=== PATIENT | male | born 1950 | race Two or more races ===

== ENCOUNTER 2025-02-14 06:10 | Inpatient (IN) | payer MEDICARE ==
[2025-02-11 14:22] LABS: Hematocrit 43.2 % (41.0-53.0); Hemoglobin 14.6 g/dL (13.5-17.5); Mean Corpuscular Hemoglobin 28.9 pg (28.0-32.0); Mean Corpuscular Volume 85.2 fL (80.0-100.0); Nucleated Red Blood Cells % 0.0 %
[2025-02-11 14:38] LABS: INR 0.97 (0.9-1.15); Partial Thromboplastin Time 25.9 SEC (24.5-34.5); Prothrombin Time 10.3 sec (9.3-11.8)
[2025-02-11 14:53] LABS: Urine Protein, UAD Negative (Negative)
[2025-02-11 16:21] LABS: Alanine Aminotransferase 28 U/L (7-40); Albumin 4.4 g/dL (3.2-4.8); Alkaline Phosphatase 69 U/L (46-116); Anion Gap 10 (5-15); BUN/Creatinine Ratio 9.1 (10.0-20.0); Calcium 9.4 mg/dL (8.7-10.4); Carbon Dioxide 26 mmol/L (20-31); Chloride 103 mmol/L (98-107); Glucose 105 mg/dL (74-106); Potassium 4.3 mmol/L (3.5-5.1); Sodium 139 mmol/L (136-145); Total Protein 7.4 g/dL (5.7-8.2)
[2025-02-11 16:22] LABS: Bilirubin, Total 0.5 mg/dL (0.2-1.0)
[2025-02-11 16:26] LABS: Blood Urea Nitrogen 9 mg/dL (9-23)
[2025-02-14] VITALS (7 sets, daily range): BP systolic 133–146; BP diastolic 81–93; PULSE 73–102; RESP 12–18; TEMP 97.2–97.7; O2SAT 96–98
[~2025-02-14] VITALS: Ht 162.6 cm; Wt 86.6 kg
[~2025-02-14 06:10] MED LIST: ASPI81CH59 PO; ATOR10TA PO; CALC1TAB92 PO; CLOP75TA28 PO; GLIM2TAB33 PO; LISI20TA56 PO; METO25TA93 PO; PANT40TA2 PO; SITA50TA28 PO
[2025-02-14] MEDS ORDERED: fentaNYL CITRATE 5 ML ONE (07:16)
[2025-02-14] MEDS ORDERED: fentaNYL CITRATE 100 MCG/2 ML VL ONE ×2 (07:16→10:00)
[2025-02-14] MEDS ORDERED: GLYCOPYRROLATE 0.2 MG/ML 1ML VIAL ONE (07:17)
[2025-02-14] MEDS ORDERED: PHENYLEPHRINE HCL 10 MG/ML VL ONE (07:17)
[2025-02-14] MEDS ORDERED: ETOMIDATE (2MG/ML) 20ML VIAL IV ONE (07:17)
[2025-02-14] MEDS ORDERED: ROCURONIUM 10MG/ML 10ML VIAL IV ONE (07:17)
[2025-02-14] MEDS ORDERED: MIDAZOLAM HCL 2MG/2ML 2ml VIAL (1mg/ml) ONE (07:17)
[2025-02-14] MEDS ORDERED: PROPOFOL 10 MG/ML 20 ML IV ONE ×2 (07:17→10:10)
[2025-02-14] MEDS ORDERED: ONDANSETRON HCL 4 MG/2 ML VIAL ONE (07:17)
[2025-02-14] MEDS ORDERED: HYDROmorphone HCL 2 MG/ML VL/or syr ONE (07:24)
--- NOTE | 2025-02-14 07:41 | DVHHP2 ---
History Allergies: Coded Allergies: NO KNOWN ALLERGIES (Unverified , 02/11/25) Chief Complaint: Right shoulder pain. Cervical stenosis Present Illness(Onset/Duration Patient has been having right shoulder pain and weakness to his right arm for the past 6-7 months physical therapy did help a little bit but as soon as he stops it comes right back with pain and weakness. Noncontributory Past Surgical History: Other (Stent placement x1) Exam Exam General Appearance: No Apparent Distress, Normal, Obese HEENT: Normal ENT Inspection Neck: Normal, Other (Normal range of motion however complaining of right shoulder pain and weakness of the right arm however hand tack puller machine are equal) Respiratory: No Accessory Muscle Use, None, No Respiratory Distress Cardiovascular: None, Other (No complaints of chest pain skin is pink warm and dry) Gastrointestinal: Other (No complaints) Extremities: Normal capillary refill, Other (Weakness to the right arm however equal strong hand tack puller machine) Neurologic: Alert, No Motor Deficits, Normal Affect, Normal Mood Cerebellar Function: Normal, Other (No complaints of balance issues) Skin: Normal Color, Warm Plan Additional comments: Patient is arrived for elective spine surgery with Dr Francis Jacinto C4-7 anterior cervical diskectomy and fusion. Patient is currently complaining of right shoulder pain and right arm weakness has been going on for about 6-7 months he has had physical therapy in the past which did help however when physical therapy ends the pain and discomfort and weakness returns. Patient understands that the goals to discharge are that the patient is eating eating without nausea. drinking fluids without coughing or choking, voiding clear yellow urine, passing gas or having a bowel movement, ambulating safely with or without assistive devices, and patient is able to control pain with oral analgesia only. The risks/benefits/alternatives of surgery were explained to the patient in detail including but not limited to , stroke, paralysis, myocardial infarction, bleeding, infection, complications of anesthesia (dry mouth, sore throat, dental damage, respiratory depression, blindness), postoperative infection, incomplete relief of symptoms, recurrence of symptoms, damage to blood vessels, nerves and tendons, pulmonary embolism and possible need for repeat surgery in the future. Pain, damage to surrounding soft tissue structures, need for reoperation or future surgery, persistent pain/disability/deformity, bone graft collapse or extrusion of interbody device, instrumentation failure, need for instrumentation removal, dural tear, temporary or permanent nerve root damage, deep vein thrombosis, pulmonary embolism, were described to the patient in detail and the patient wishes to proceed. No guarantee of surgical outcome/improvement was implied. All of the questions were answered thoroughly and consents were obtained. Call with questions Rafael Garcia [facility] Orthopaedic Spine Surgery nurse practitioner For Dr Nehemias Jacinto Patient was examined, chart reviewed, labs evaluated, and diagnostic studies and findings analyzed. Case was discussed with Dr. Francis Jacinto who formulated the plan of care. This medical document was created using an electronic medical record system with [employer] dictation system. Although this document has been carefully reviewed, there might still be some phonetic and typographical errors. These areas are purely typographical due to imperfections of the software programs, and do not reflect any compromise in the patient's medical care. KAYCEE GARCIA NP Feb 14, 2025 07:41
--- NOTE | 2025-02-14 07:43 | POSTOP ---
Post-Operative Note Post-Operative Note Preop Diagnosis Cervical Degenerative Disk Disease and Severe Spinal Stenosis at C3/4 , C4/5 and C5/6 Causing incapacitating neck pain, radiculopathy and progressive neurologic deficit Postop Diagnosis: Cervical Degenerative Disk Disease and Severe Spinal Stenosis at C3/4 , C4/5 and C5/6 Causing incapacitating neck pain, radiculopathy and progressive neurologic deficit Procedure: Cervical 3 to 4 anterior cervical discectomy with Cervical 3-4 foraminotomies and facetectomies to decompression the spinal canal and Cervical 4 nerve roots Cervical 4 to 5 anterior cervical discectomy with Cervical 4-5 foraminotomies and facetectomies to decompression the spinal canal and Cervical 5 nerve roots Cervical 5 to 6 anterior cervical discectomy with Cervical 5-6 foraminotomies and facetectomies to decompression the spinal canal and Cervical 6 nerve roots Cervical 3-6 anterior cervical Fusion Cervical 3-6 anterior cervical instrumentation with Xtant Irix-C Standalone Interbody Fusion Devices Cervical 3-4 placement of allograft prosthetic device Cervical 4-5 placement of allograft prosthetic device Cervical 5-6 placement of allograft prosthetic device Operation performed C4-7 anterior cervical diskectomy and fusion Specimen None Anesthesia: General Anesthesiologist: Dr Malone Blood Loss(fluid mgmt) See anesthesia record Tourniquet Time None Surgeon Dr Francis Jacnito Passenger Locomotive Engineer Dana Maradiaga, [employer] Implant 7mm spacer x 3 3.5 x 14 screw x 6 Complications & Mgmt None Additional Remarks Initial complaintsPatient is currently complaining of right shoulder pain and right arm weakness has been going on for about 6-7 months he has had physical therapy in the past which did help however when physical therapy ends the pain and discomfort and weakness returns. Disposition: -Pending -Discharge RX: Pending -Follow up appointment: with Dr Jacinto on scheduled date and time of your appointment, [id number] [facility] [address] [place] [address] [place] [id number] -Pain: - IV pain meds post op day 1, with PO supplementation, goal is to progress weaning off IV medications and control pain with PO only. morphine 1mg q 4 hours (PAIN 7-10) - P.O. analgesics:Tylenol 650MG (PAIN 1-3) [place] 10/325 mg (PAIN 4-6) - Muscle relaxers scheduled administration. This is a beneficial medications for the incisional pain as it is mostly related to muscle spasms. Flexeril 10 mg TID - Cepacol throat lozenges as needed for sore throat -Antibiotics Operative recommendations: -Postoperative dose:-Post operative antibiotics cefazolin 1 g IV piggyback every 8 hours x 48 hours total of 6 doses -DVT PPX: -Hold all chemical DVT/ blood thinners for 14 days postoperatively -use mechanical DVT PPX such as SCD's, ambulation -Activity: -PT evaluation and patients progression -Sit at side of bed for meals -Goal: Ambulate independently and safely (may use assistive devices if needed) -Medical Therapy goals: -Afebrile- Patient may develop a expected post operative fever by day 2-3, this may not be accompanied with a elevation in WBC. if fever develops: Acetaminophen for fever. Albuterol nebulizer Tx every 12 hours for 24 hours to facilitate adequate lung expansion and prevent development of atelectasis. -Euglycemic: bloods sugars under 130mmol/L for optimal healing -Normotensive: Avoid events of hypertension. This helps to keep post operative healing intact and avoids destabilization of beneficial hemostatic coagulation. Drains -Bulb drains: record output and characteristics of the drainage EVERY 6 HOURS- if there is no output indicate this by documenting 0ml output in note.. These will be to thumbprint compression unless otherwise ordered. Record output as well as amount in a note at least every 6 houtrs- more if indicated. Wound drainage is described by type, color, amount, and odor. Drainage can be 1 serous: Clear and thin, may be present in healing healthy wound. 2 serosanguineous containing blood may also be present and healthy healing wound 3. Sanguinous primarily blood 4. Purulent this is thick, white, and pus like. It may be indicated to give of a infection and should constitute a call to the provider immediately with the plan that the sample should be cultured. -Dressings -Anterior cervical patients: Initial surgical dressing may be reinforced if needed. If there is excessive bleeding, leaking, drainage in the bulb drain notify provider -Bowel management: -Colace 100mg bid -Diet: -Clear liquid diet and advance as patient tolerates within dietary limitations ( example: diabetic, Cardiac) -Incentive Spirometer: -10 x hour while awake, RN please educate and observe repeat demonstration, have IS at bedside POD #1 -X-rays: - none indicated at this time -Consults: -Physical Therapy evaluation, treatment recommendations, and discharge recommendations Call with questions Rafael Maradiaga [facility] Orthopaedic Spine Surgery nurse practitioner For Dr Nehemias Jacinto Patient was examined, chart reviewed, labs evaluated, and diagnostic studies and findings analyzed. Case was discussed with Dr. Francis Jacinto who formulated the plan of care. This medical document was created using an electronic medical record system with [employer] dictation system. Although this document has been carefully reviewed, there might still be some phonetic and typographical errors. These areas are purely typographical due to imperfections of the software programs, and do not reflect any compromise in the patient's medical care. Date 02/14/25 Time 07:41 DANA MARADIAGA NP Feb 14, 2025 07:43
[2025-02-14] MEDS ORDERED: MORPHINE SULFATE INJ 2 MG/ml SYRG IV PRN ×2 (09:15)
[2025-02-14] MEDS ORDERED: HYDROcodone-ACET 10/325MG TAB PO PRN (09:15)
[2025-02-14] MEDS ORDERED: ACETAMINOPHEN 325 MG TAB PO PRN (09:15)
[2025-02-14] MEDS ORDERED: ONDANSETRON HCL 4 MG/2 ML VIAL IV PRN ×2 (09:15→12:00)
[2025-02-14] MEDS ORDERED: NITROGLYCERIN 0.4 MG SL TAB SL PRN (09:15)
[2025-02-14] MEDS ORDERED: MEPERIDINE HCL (25 MG/ML) 1ML VIAL ONE (10:00)
[2025-02-14] MEDS ORDERED: SUGAMMADEX 200mg/2ml Vial (100MG/ML) IV ONE (11:19)
--- NOTE | 2025-02-14 11:47 | DVHOP2 ---
Operative Report - 2 Report Details Date: 02/14/25 Preop Diagnosis: 1. cervical spinal stenosis at C3/4 and 4/5 and 5/6 with severe neck pain , radiculopathy and myelopathy causing progressive neurologic deficit Postop Diagnosis: same as pre op Surgeon: Francis Jacinto MD Straw Hat Brim Cutter Operator: Dana Garcia NP Anesthesiologist: Dr. Malone Anesthesia: General Consent: The patient was informed of the risks and benefits of the procedure. These include but are not limited to complications of anesthesia, postoperative infection, incomplete relief of symptoms, recurrence of symptoms, damage to blood vessels, nerves and tendons, deep venous thrombosis, pulmonary embolism and possible need for repeat surgery in the future. Name of Procedure Performed see detailed note Procedure Details Procedure Details: Pre Op Diagnosis: 1. Cervical Degenerative Disk Disease and Severe Spinal Stenosis at C3/4 , C4/5 and C5/6 Causing incapacitating neck pain, radiculopathy and progressive neurologic deficit Post Op Diagnosis: 1. Same Procedure: Cervical 3 to 4 anterior cervical discectomy with Cervical 3-4 foraminotomies and facetectomies to decompression the spinal canal and Cervical 4 nerve roots Cervical 4 to 5 anterior cervical discectomy with Cervical 4-5 foraminotomies and facetectomies to decompression the spinal canal and Cervical 5 nerve roots Cervical 5 to 6 anterior cervical discectomy with Cervical 5-6 foraminotomies and facetectomies to decompression the spinal canal and Cervical 6 nerve roots Cervical 3-6 anterior cervical Fusion Cervical 3-6 anterior cervical instrumentation with Xtant Irix-C Standalone Interbody Fusion Devices Cervical 3-4 placement of allograft prosthetic device Cervical 4-5 placement of allograft prosthetic device Cervical 5-6 placement of allograft prosthetic device Surgeon: Francis Jacinto MD Anesthesia: General Assist: Dana Garcia NP Fluids and EBL: see anesthesia note Procedure Note: The patient was seen in the Pre-anesthesia Care Unit and the site of the incision was initialed by me with a felt tipped marker. All questions by the patient were answered to the satisfaction of the patient and the chart was reviewed. The patient was taken to the operating room and placed supine on the [facility] top table. General anesthesia was induced. Neuromonitoring leads were placed. A rolled towel was placed between the shoulder blades to hyperextend out the chest which will allow better exposure of the cervical spine. Halter traction to 10 pounds was placed. The arms were padded and adducted to the patients side making sure all pulses in the hands were present. Tape traction was undertaken on the shoulders to give us better radiographic exposure of the distal cervical spine. A gel-pad was placed under the occiput and 5 degrees of extension was placed on the neck without adverse effects to the patient. The anterior neck was prepped and draped. Pre-operative antibiotics were given 30 minutes prior to the start of the procedure. A c-arm fluoroscope was used to arturo out the incision site. A longitudinal incision from the cricoid process cranially to the hyoid bone along the anterior border of the sternocleidomastoid was made. At this time, a time out was taken per usual protocol. Next an incision was made through the skin with a 15 blade scalpel through the subcutaneous tissue down to the platysma. Self-retainers were placed. The platysma was incised along the longitudinal border with a Metzenbaum scissors. Blunt dissection was made through the deep cervical and pre-tracheal fascia taking care to protect the carotid sheath laterally and the trachea and esophagus medially. The dissection was carried down to the pre-vertebral fascia. Any crossing vessels were ligated using a vascular clip or coagulated with a bovie. An esophageal retractor was next used to retract the trachea/esophagus and a bent [address] through the anterior annulus of the cervical disk and a lateral C-arm fluoroscopic image was taken to confirm that we were at the correct level. Next, bovie electrocautery was used to expose the bones of cervical 3,4,5,6 and bipolar electrocautery was used to lift up the Longus colli and capitus muscles. Black-Belt Self Retainers were used to retract the longus colli and capitus muscles bilaterally as well as the trachea/esophagus to the right and the carotid sheath to the left. Self retaining retractors were placed proximally and distally and a needle was placed again in the anterior annulus of the disk and an image taken to confirm the correct level. At this point, the microscope was wheeled in and an 11 blade scalpel incised the anterior annulus of the cervical 3/4 and 4/5 and 5/6 disks. Next, straight and curved curettes removed the remainder of the disks all the way down to the posterior longitudinal ligament. Carefully, a Kerison number one rongeur incised the posterior longitudinal ligament at the lateral end of the above disks and using a micro, blunt tip nerve hook to separate the posterior longitudinal ligament from the dura, alternating 1 mm and 2 mm Kerison rongeurs removed the posterior longitudinal ligament. Next, Kerison 1mm and 2 mm rongeurs were alternated to get under the uncinate processes and undercut them to perform foraminotomies and facetectomies at the cervical 3/4 and 4/5 and 5/6 levels to decompress the central canal and cervical 4,5 and 6 nerve roots. Next the c-arm fluoroscope was wheeled into the field and a lateral image was obtained. Increasing size graft trials were used start ing at a 5 mm thick size until the proper tension in the disk space and height bahai obtained. We then placed final free standing cages at C3/4 and 4/5 and 5/6. The size of the implants was: Satisfactory placement was confirmed in the AP and lateral views using a C-arm fluoroscope. Copious irrigation of the wound with sterile saline and all bleeding was controlled before closure initiated. At this point, a [address] [place] [address] Drain was place deep to the Platysma muscle and the Platysma was a pproximated with one interrupted 0-Vicryl suture. The subcutaneous tissue was closed with interrupted 2-0 vicryl sutures and the skin was closed with heather. Sterile dressings were placed and a cervical collar placed, the patient extubated, transferred to the stretcher and taken to the Recovery Room in unremarkable condition. Condition Stable Disposition Still a Patient FRANCIS JACINTO MD Feb 14, 2025 11:47
[2025-02-14] MEDS ORDERED: HYDROmorphone HCL 2 MG/ML VL/or syr IV PRN (12:00)
[2025-02-14] MEDS: ceFAZolin 1GM/50ML 50 ML IV SCH (13:31)
[2025-02-14] MEDS: CYCLOBENZAPRINE HCL 10 MG TAB PO SCH (13:33)
[2025-02-14] MEDS: D5W/SOD CHLO 0.9% 1,000 ML IV SCH (13:35)
[2025-02-14] MEDS: TRANEXAMIC ACID 20 ML ONE (13:42)
[2025-02-14] MEDS: ceFAZolin 2 GM/D5W50ml 50 ML IV ONE (13:42)
[2025-02-14] MEDS: DOCUSATE SOD 100 MG CAP PO SCH (13:43)
[2025-02-14] MEDS ORDERED: DEXTROSE (50%) 50ML SYRG IV PRN (14:15)
[2025-02-14] MEDS: InsuLIN REG 1unit/0.01ml Soln (100units/ml) SC SCH (14:32)
[2025-02-14] MEDS: ACETAMINOPHEN IV 1000 MG/100ML (10MG/ML) IV ONE (15:12)
--- NOTE | 2025-02-14 15:22 | DVHINCON2 ---
Date Seen: Feb 14, [address] REA Allergies: Coded Allergies: NO KNOWN ALLERGIES (Unverified , 02/11/25) Home Meds Reported Medications Calcium Carbonate (Calcium) 600 Mg Tab, 600 MG PO DAILY, TAB 02/11/25 Aspirin (Aspirin Low Dose) 81 Mg Chw, 81 MG PO DAILY, TAB.CHEW 02/11/25 Sitagliptin-Metformin Hcl (JANUMET XR) 1 Tab Tab, 1 TAB PO DAILY, TAB 02/11/25 Clopidogrel Bisulfate (Plavix) 75 Mg Tab, 75 MG PO DAILY, TAB 02/11/25 Lisinopril (Lisinopril) 20 Mg Tab, 10 MG PO DAILY, TAB 02/11/25 Metoprolol Succinate (Metoprolol Succinate Er) 25 Mg Tab, 25 MG PO DAILY, TAB 02/11/25 Atorvastatin Calcium (Lipitor) 10 Mg Tab, 10 MG PO DAILY, TAB 02/11/25 Pantoprazole Sodium Sesquihydr (Protonix) 40 Mg Tab, 40 MG PO DAILY, #30 TAB 02/11/25 Glimepiride (Glimepiride) 2 Mg Tab, 3 MG PO DAILY, TAB 02/11/25 Current Medications Current Medications Medications (Trade) Dose Ordered Sig/Janice Route PRN Reason Start Time Stop Time Status Last Admin Dextrose/Sodium Chloride 1,000 ml @ 100 mls/hr Q10H IV 02/14/25 09:15 02/14/25 14:15 DC 02/14/25 13:35 Ondansetron HCl (Zofran) 4 mg Q4HP PRN IV NAUSEA / VOMITING 02/14/25 09:15 Acetaminophen (Tylenol Tablet) 650 mg Q6HP PRN PO MILD PAIN (1-3 PAIN SCALE) 02/14/25 09:15 Acetaminophen/ Hydrocodone Bitart ([place] 10/325MG Tab) 1 tab Q6HP PRN PO MODERATE PAIN (4-6 PAIN SCALE) 02/14/25 09:15 Morphine Sulfate 1 mg Q4HP PRN IV SEVERE PAIN (7-10 PAIN SCALE) 02/14/25 09:15 Cyclobenzaprine HCl (Flexeril Tablet) 10 mg TID PO 02/14/25 14:00 02/14/25 13:33 Docusate Sodium (Colace Capsule) 100 mg BID PO 02/14/25 10:00 Cefazolin Sodium 50 ml @ 100 mls/hr Q8HR IV 02/14/25 14:00 02/16/25 06:29 02/14/25 13:31 Nitroglycerin (Ntrostat Sublingual) 0.4 mg Q5MINP PRN SL FOR CHEST PAIN 02/14/25 09:15 Morphine Sulfate 2 mg Q30M PRN IV FOR CHEST PAIN 02/14/25 09:15 Ondansetron HCl (Zofran) 4 mg ONCE PRN IV NAUSEA / VOMITING 02/14/25 12:00 02/14/25 13:06 DC Hydromorphone HCl (Dilaudid Injection) 0.5 mg Q10M PRN IV SEVERE PAIN (7-10 PAIN SCALE) 02/14/25 12:00 02/14/25 13:06 DC Diagnostic Test (Pha) (Accu-Chek Comfort Curve T) 1 strip ACHS 02/14/25 17:00 Insulin Human Regular (InsuLIN R) ACHS SC 02/14/25 14:15 02/14/25 14:32 Dextrose 50 ml UD PRN IV Blood Sugar LESS THAN 60 02/14/25 14:15 Vital Signs Vital Signs Date Time Temp Pulse Resp B/P (MAP) Pulse Ox O2 Delivery O2 Flow Rate FiO2 02/14/25 14:32 97 18 138/82 (100) 96 02/14/25 12:14 Nasal Cannula 2.0 96 02/14/25 06:24 97.3 97.3 Labs/Diagnostic Data Labs Test 02/14/25 14:02 02/11/25 13:54 Range/Units POC Glucose 303 H 70-106 mg/dl White Blood Count 9.1 4.4-10.8 10^3/uL Red Blood Count 5.07 4.5-5.90 10^6/uL Hemoglobin 14.6 13.5-17.5 g/dL Hematocrit 43.2 41.0-53.0 % Mean Corpuscular Volume 85.2 80.0-100.0 fL Mean Corpuscular Hemoglobin 28.9 28.0-32.0 pg Mean Corpuscular Hemoglobin Concent 33.9 32.0-36.0 g/dL Red Cell Distribution Width 13.8 11.8-14.3 % Platelet Count 192 140-450 10^3/uL Mean Platelet Volume 10.1 6.9-10.8 fL Neutrophils (%) (Auto) 55.7 37.0-80.0 % Lymphocytes (%) (Auto) 29.9 10.0-50.0 % Monocytes (%) (Auto) 8.8 0.0-12.0 % Eosinophils (%) (Auto) 4.7 0.0-7.0 % Basophils (%) (Auto) 0.9 0.0-2.0 % Neutrophils # (Auto) 5.0 1.6-8.6 10 ^3/uL Lymphocytes # (Auto) 2.7 0.4-5.4 10 ^3/uL Monocytes # (Auto) 0.8 0-1.3 10 ^3/uL Eosinophils # (Auto) 0.4 0-0.8 10 ^3/uL Basophils # (Auto) 0.1 0-0.2 10 ^3/uL Nucleated Red Blood Cells 0.0 % Prothrombin Time 10.3 9.3-11.8 sec Prothrombin Time INR 0.97 0.9-1.15 Activated Partial Thromboplast Time 25.9 24.5-34.5 SEC Urine Color Colorless Yellow Urine Clarity Clear Clear Urine pH 6.5 5.0-9.0 Urine Specific [place] 1.005 1.001-1.035 Urine Protein Negative Negative Urine Ketones Negative Negative Urine Blood Negative Negative /uL Urine Nitrite Negative Negative Urine Bilirubin Negative Negative Urine Urobilinogen Normal Negative mg/dL Urine Leukocyte Esterase Negative Negative /uL Urine RBC <1 0 - 3 /hpf Urine Microscopic WBC 0-3 /HPF Urine Squamous Epithelial Cells None seen <5 /hpf Urine Bacteria None seen None Seen /hpf Urine Glucose Normal Normal mg/dL Sodium Level 139 136-145 mmol/L Potassium Level 4.3 3.5-5.1 mmol/L Chloride Level 103 98-107 mmol/L Carbon Dioxide Level 26 20-31 mmol/L Anion Gap 10 5-15 Blood Urea Nitrogen 9 9-23 mg/dL Creatinine 0.99 0.700-1.30 mg/dL Glomerular Filtration Rate Calc 80 >90 mL/min BUN/Creatinine Ratio 9.1 L 10.0-20.0 Serum Glucose 105 74-106 mg/dL Calcium Level 9.4 8.7-10.4 mg/dL Total Bilirubin 0.5 0.2-1.0 mg/dL Aspartate Amino Transferase (AST) 18 13-40 U/L Alanine Aminotransferase (ALT) 28 7-40 U/L Alkaline Phosphatase 69 46-116 U/L Total Protein 7.4 5.7-8.2 g/dL Albumin 4.4 3.2-4.8 g/dL Assessment SEE DICTATED NOTE Plan discussed with: Patient Date of Service: Feb 14, 2025 Billing Provider: MARKO WRIGHT MD Common Visit Codes: 74036-WPMSDXU INP/OBS CARE (HIGH) Secondary Visit Codes: 47406-[id number] CARE PLAN 30 MINUTES MARKO WRIGHT MD Feb 14, 2025 15:22
--- NOTE | 2025-02-14 16:39 | DVH ---
C-ARM FLUOROSCOPY: PROCEDURE: C4 through C7 discectomy with fusion FLUOROSCOPY TIME: 44.7 seconds Air Kerma: Not given FINDINGS: Spot intraoperative C arm radiographs demonstrating cervical discectomy and fusion. IMPRESSION: 1. Please refer to surgical report for detailed findings.
--- NOTE | 2025-02-14 16:41 | DVH ---
CLINICAL INDICATION: C4-C7 DISCECTOMY AND FUSION TECHNIQUE: 5 radiographic views of the C4 through C7 discectomy and fusion were obtained. Comparison: None FINDINGS/IMPRESSION: 5 images of discectomy cervical fusion C4 through C7. Total fluoro time 44.7 seconds Cumulative dose: 5.25 mGy
[2025-02-14] MEDS: ACCU-CHEK COMFORT CURVE STRIP VI SCH (17:00)
--- NOTE | 2025-02-14 19:00 | DVHINCON2 ---
DATE OF CONSULTATION: 02/14/2025 INTERNAL MEDICINE CONSULT HISTORY OF PRESENT ILLNESS: The patient is a 74-year-old gentleman who was admitted after he underwent surgery on the cervical spine for cervical stenosis. The patient at this time denies any significant pain. No chest pain, no shortness of breath, no dizziness, no focal deficits. REVIEW OF SYSTEMS: Review of rest of systems are currently negative. PAST MEDICAL HISTORY: Significant for diabetes, hypertension, hyperlipidemia and questionable coronary artery disease. MEDICATIONS: Include aspirin, Plavix, Lipitor, glimepiride, metoprolol, Protonix, and lisinopril. ALLERGIES: No known drug allergies. SOCIAL HISTORY: No smoking. Lives at home with family. FAMILY HISTORY: Family history is negative. PHYSICAL EXAMINATION: GENERAL: The patient is awake, alert. VITAL SIGNS: Temperature of 97.3, pulse 97 per minute, blood pressure 138/82. SHEENT: Unremarkable except for dressing on the left side of the neck with a drain in place. LUNGS: Equal bilaterally. No added sounds. CARDIOVASCULAR: S1 and S2 is regular. No murmurs. ABDOMEN: Soft. There is no organomegaly. NEUROLOGIC: Nonfocal. MUSCULOSKELETAL: Normal except for dressing to the left neck. ASSESSMENT AND PLAN: * Hypertension, for which the patient will be placed on as-needed hydralazine. * Diabetes mellitus. The patient will be placed on sliding scale insulin. * Hyperlipidemia. * Obesity. * Coronary artery disease. * Status post cervical spine surgery for cervical stenosis, for which he will be placed on pain medications and received physical therapy. * Advanced care planning: The patient is a full code-Time spent was 17 minutes. MD SANCHO Blue/YUDI TID: [id number] RECEIPT: [id number] [facility]
[2025-02-15] VITALS (8 sets, daily range): BP systolic 143–151; BP diastolic 78–89; PULSE 69–102; RESP 16–18; TEMP 97.5–98.9; O2SAT 94–99
[2025-02-15] MEDS: hydrALAZINE HCL 20 MG/ML VL IV PRN (05:01)
[2025-02-15 05:57] LABS: Hematocrit 38.8 % (41.0-53.0); Hemoglobin 13.2 g/dL (13.5-17.5); Mean Corpuscular Hemoglobin 29.2 pg (28.0-32.0); Mean Corpuscular Volume 85.9 fL (80.0-100.0); Nucleated Red Blood Cells % 0.1 %
[2025-02-15 06:14] LABS: Alanine Aminotransferase 24 U/L (7-40); Alkaline Phosphatase 58 U/L (46-116); Anion Gap 9 (5-15); BUN/Creatinine Ratio 12.1 (10.0-20.0); Blood Urea Nitrogen 11 mg/dL (9-23); Calcium 9.0 mg/dL (8.7-10.4); Carbon Dioxide 24 mmol/L (20-31); Potassium 4.3 mmol/L (3.5-5.1); Sodium 142 mmol/L (136-145); Total Protein 6.5 g/dL (5.7-8.2)
[2025-02-15 06:15] LABS: Albumin 3.9 g/dL (3.2-4.8)
[2025-02-15 06:16] LABS: Bilirubin, Total 0.5 mg/dL (0.2-1.0)
[2025-02-15 06:27] LABS: Chloride 109 mmol/L (98-107); Glucose 228 mg/dL (74-106)
--- NOTE | 2025-02-15 10:50 | DVHPN2 ---
Progress Note - Surgical Date Seen: Feb 15, 2025 Post op day Post op day: 1 Subjective Patient reports: No new complaints (Pt feeling good, up and walking) Review of Systems: NEURO:Abnormal (Initial complaints Patient preop complaints of right shoulder pain and right arm weakness has been going on for about 6-7 months he has had physical therapy in the past which did help however when physical therapy ends the pain and discomfort and weakness returns.) Objective Vital signs Vital Sign Date Time Temp Pulse Resp B/P (MAP) Pulse Ox O2 Delivery O2 Flow Rate FiO2 02/15/25 09:00 97.9 77 16 148/78 (101) 99 97.9 02/14/25 20:00 Nasal Cannula* 2 28 Total Intake and Output 02/14/25 02/14/25 02/15/25 15:00 23:00 07:00 Intake Total 850 ml 760 ml Output Total 25 ml 20 ml 2750 ml Balance -25 ml 830 ml -1990 ml Medications Current Medications Medications Dose Ordered Sig/Janice Route Start Time Stop Time Status Last Admin Dose Admin Ondansetron HCl 4 mg Q4HP PRN IV 02/14/25 09:15 Acetaminophen 650 mg Q6HP PRN PO 02/14/25 09:15 Acetaminophen/ Hydrocodone Bitart 1 tab Q6HP PRN PO 02/14/25 09:15 Morphine Sulfate 1 mg Q4HP PRN IV 02/14/25 09:15 Cyclobenzaprine HCl 10 mg TID PO 02/14/25 14:00 02/15/25 05:01 10 MG Docusate Sodium 100 mg BID PO 02/14/25 10:00 02/15/25 10:02 100 MG Cefazolin Sodium 50 ml @ 100 mls/hr Q8HR IV 02/14/25 14:00 02/16/25 06:29 02/15/25 05:01 100 MLS/HR Nitroglycerin 0.4 mg Q5MINP PRN SL 02/14/25 09:15 Morphine Sulfate 2 mg Q30M PRN IV 02/14/25 09:15 Diagnostic Test (Pha) 1 strip ACHS 02/14/25 17:00 02/15/25 10:02 1 STRIP Insulin Human Regular ACHS SC 02/14/25 14:15 02/15/25 06:07 4 UNITS Dextrose 50 ml UD PRN IV 02/14/25 14:15 Hydralazine HCl 10 mg Q6HP PRN IV 02/14/25 15:30 02/15/25 05:01 10 MG Laboratory Laboratory Tests 02/15/25 05:32 Test 02/15/25 05:32 Range/Units Serum Glucose 228 #H 74-106 mg/dL Examination: GENERAL:Normal, HEENT:Normal, NECK:Normal (bulb drain intact with over 50 mlin drainage, will keep drain and reassess tuesday02/16/25), LUNGS:Normal, CVS:Normal, ABDOMEN:Normal, MSK:Normal (patiennt ambulating), SKIN:Normal (well approximated with heather), NEURO:Normal (preop symptoms resolved), :Abnormal (salinas remains) Problem List/Assessment/Plan Problems: (1) Acute post-operative pain (2) Muscle spasms of neck Assessment and Plan Initial complaints Patient preop complaints of right shoulder pain and right arm weakness has been going on for about 6-7 months he has had physical therapy in the past which did help however when physical therapy ends the pain and discomfort and weakness returns. patient doing well, ambulating,preop symptoms resolving nicely will reassess drain tomorrow patient is progressing to DC. Disposition: -Pending -Discharge RX: Pending -Follow up appointment: with Dr Jacinto on scheduled date and time of your appointment, [id number] [facility] [address] [place] [id number] -Pain: - IV pain meds post op day 1, with PO supplementation, goal is to progress weaning off IV medications and control pain with PO only. morphine 1mg q 4 hours (PAIN 7-10) - P.O. analgesics:Tylenol 650MG (PAIN 1-3) Arco 10/325 mg (PAIN 4-6) - Muscle relaxers scheduled administration. This is a beneficial medications for the incisional pain as it is mostly related to muscle spasms. Flexeril 10 mg TID - Cepacol throat lozenges as needed for sore throat -Antibiotics Operative recommendations: -Postoperative dose:-Post operative antibiotics cefazolin 1 g IV piggyback every 8 hours x 48 hours total of 6 doses -DVT PPX: -Hold all chemical DVT/ blood thinners for 14 days postoperatively -use mechanical DVT PPX such as SCD's, ambulation -Activity: -PT evaluation and patients progression -Sit at side of bed for meals -Goal: Ambulate independently and safely (may use assistive devices if needed) -Medical Therapy goals: -Afebrile- Patient may develop a expected post operative fever by day 2-3, this may not be accompanied with a elevation in WBC. if fever develops: Acetaminophen for fever. Albuterol nebulizer Tx every 12 hours for 24 hours to facilitate adequate lung expansion and prevent development of atelectasis. -Euglycemic: bloods sugars under 130mmol/L for optimal healing -Normotensive: Avoid events of hypertension. This helps to keep post operative healing intact and avoids destabilization of beneficial hemostatic coagulation. Drains -Bulb drains: record output and characteristics of the drainage EVERY 6 HOURS- if there is no output indicate this by documenting 0ml output in note.. These will be to thumbprint compression unless otherwise ordered. Record output as well as amount in a note at least every 6 houtrs- more if indicated. Wound drainage is described by type, color, amount, and odor. Drainage can be 1 serous: Clear and thin, may be present in healing healthy wound. 2 serosanguineous containing blood may also be present and healthy healing wound 3. Sanguinous primarily blood 4. Purulent this is thick, white, and pus like. It may be indicated to give of a infection and should constitute a call to the provider immediately with the plan that the sample should be cultured. -[place]: -DC in OR -Dressings -Anterior cervical patients: Initial surgical dressing may be reinforced if needed. If there is excessive bleeding, leaking, drainage in the bulb drain notify provider -Bowel management: -Colace 100mg bid -Diet: -Clear liquid diet and advance as patient tolerates within dietary limitations ( example: diabetic, Cardiac) -Incentive Spirometer: -10 x hour while awake, RN please educate and observe repeat demonstration, have IS at bedside POD #1 -X-rays: - none indicated at this time -Consults: -Physical Therapy evaluation, treatment recommendations, and discharge recommendations Call with questions Rafael Maradiaga ACNP- Orthopaedic Spine Surgery nurse practitioner For Dr Nehemias Jacinto Patient was examined, chart reviewed, labs evaluated, and diagnostic studies and findings analyzed. Case was discussed with Dr. Francis Jacinto who formulated the plan of care. This medical document was created using an electronic medical record system with [employer] dictation system. Although this document has been carefully reviewed, there might still be some phonetic and typographical errors. These areas are purely typographical due to imperfections of the software programs, and do not reflect any compromise in the patient's medical care. My Orders My Orders Orders - KAYCEE MARADIAGA NP Procedure Category Date Status Time * Urology Consult CONS 02/14/25 Transmitted 12:02 Communication Order ORDERS 02/14/25 Transmitted 12:02 Is At Bedside. JOHN 02/14/25 In Process 12:02 Kike Drain To Closed JOHN 02/14/25 In Process Suction 12:02 Communication Order ORDERS 02/14/25 Transmitted 18:00 Communication Order ORDERS 02/15/25 Transmitted 00:00 Communication Order ORDERS 02/15/25 Transmitted 06:00 Communication Order ORDERS 02/15/25 Transmitted 12:00 Communication Order ORDERS 02/15/25 Transmitted 18:00 Consistent DIET 02/14/25 Transmitted Carb(Ccho)Diabetes Dinner * Hospitalist Consult CONS 02/14/25 Transmitted Plan discussed with Plan discussed with: Patient, Other Visit Coding Surgery Date of Service if different f: Feb 15, 2025 Billing Provider: KAYCEE MARADIAGA NP Surgery Visit Codes: NOT BILLABLE KAYCEE MARADIAGA NP Feb 15, 2025 10:50
--- NOTE | 2025-02-15 13:33 | DVHPN2 ---
Reviewed: Care Plan, H&P, Labs, Medications, Previous Orders, Radiology Changes from previous H/P or p: No Changes Objective Vitals Vital Signs Date Time Temp Pulse Resp B/P (MAP) Pulse Ox O2 Delivery O2 Flow Rate FiO2 02/15/25 09:00 97.9 77 16 148/78 (101) 99 97.9 02/14/25 20:00 Nasal Cannula* 2 28 Intake/Output Intake and Output 02/15/25 07:00 Intake Total 1610 ml Output Total 2795 ml Balance -1185 ml Intake Oral 1160 ml Other 450 ml Output Urine Total 2750 ml Drainage Total 45 ml Medications Current Medications Medications Dose Ordered Sig/Janice Route Start Time Stop Time Status Last Admin Dose Admin Ondansetron HCl 4 mg Q4HP PRN IV 02/14/25 09:15 Acetaminophen 650 mg Q6HP PRN PO 02/14/25 09:15 Acetaminophen/ Hydrocodone Bitart 1 tab Q6HP PRN PO 02/14/25 09:15 Morphine Sulfate 1 mg Q4HP PRN IV 02/14/25 09:15 Cyclobenzaprine HCl 10 mg TID PO 02/14/25 14:00 02/15/25 05:01 10 MG Docusate Sodium 100 mg BID PO 02/14/25 10:00 02/15/25 10:02 100 MG Cefazolin Sodium 50 ml @ 100 mls/hr Q8HR IV 02/14/25 14:00 02/16/25 06:29 02/15/25 05:01 100 MLS/HR Nitroglycerin 0.4 mg Q5MINP PRN SL 02/14/25 09:15 Morphine Sulfate 2 mg Q30M PRN IV 02/14/25 09:15 Diagnostic Test (Pha) 1 strip ACHS 02/14/25 17:00 02/15/25 10:02 1 STRIP Insulin Human Regular ACHS SC 02/14/25 14:15 02/15/25 11:39 4 UNITS Dextrose 50 ml UD PRN IV 02/14/25 14:15 Hydralazine HCl 10 mg Q6HP PRN IV 02/14/25 15:30 02/15/25 05:01 10 MG Laboratory Results Laboratory Tests 02/15/25 05:32 Chemistry Test 02/15/25 05:32 Albumin 3.9 g/dL (3.2-4.8) Calcium Level 9.0 mg/dL (8.7-10.4) Total Protein 6.5 g/dL (5.7-8.2) LFT Test 02/15/25 05:32 Alanine Aminotransferase (ALT) 24 U/L (7-40) Alkaline Phosphatase 58 U/L (46-116) Aspartate Amino Transferase (AST) 17 U/L (13-40) Total Bilirubin 0.5 mg/dL (0.2-1.0) HgA1c, TSH Test 02/15/25 05:32 Hemoglobin A1c 8.7 % A1C (<5.7) H Urinalysis Test 02/11/25 13:54 Urine Color Colorless (Yellow) Urine Clarity Clear (Clear) Urine pH 6.5 (5.0-9.0) Urine Specific [place] 1.005 (1.001-1.035) Urine Protein Negative (Negative) Urine Ketones Negative (Negative) Urine Blood Negative /uL (Negative) Urine Nitrite Negative (Negative) Urine Bilirubin Negative (Negative) Urine Urobilinogen Normal mg/dL (Negative) Urine Leukocyte Esterase Negative /uL (Negative) Urine RBC <1 /hpf (0 - 3) Urine Microscopic WBC /HPF (0-3) Urine Squamous Epithelial Cells None seen /hpf (<5) Urine Bacteria None seen /hpf (None Seen) Urine Glucose Normal mg/dL (Normal) Labs and/or images reviewed: Labs reviewed by me, Image(s) reviewed by me Assessment/Plan Assessment/Plan * covering for Dr. Rascon Hypertension, for which the patient will be placed on as-needed hydralazine. * Diabetes mellitus. The patient will be placed on sliding scale insulin. * Hyperlipidemia. * Obesity. * Coronary artery disease. * Status post cervical spine surgery for cervical stenosis, for which he will be placed on pain medications and received physical therapy. * Advanced care planning: The patient is a full code. Time spent 70 minutes Advanced care planning time 20 minutes Patient is full code Plan discussed with: Patient Date of Service: Feb 15, 2025 Billing Provider: NIRAV GREEN MD Common Visit Codes: [id number] CARE 30-74 MIN NIRAV GREEN MD Feb 15, 2025 13:33
--- NOTE | 2025-02-15 18:36 | DVHINCON2 ---
Date of service: Feb 14, [address] Segundo Jacinto Past Medical History Past Medical History Past medical records: reviewed Cardiovascular history: Long history of hypertension complicated by hypertensive CAD The patient had suffered acute inferolateral wall ND in May 2008 He received then PTCA followed by stent placement to proximal RCA(100% occluded ) 70% occlusion of proximal L circumflex artery-medically treated Received stress EKG test on 12/28/2024- unremarkable for reversible ischemia Endocrine history: Uncontrolled diabetestype 2 -hemoglobin A1c 8.5 to 10% % on hypoglycemic Hypercholesterolemia-the patient has been on Lipitor r and Ecotrin Exogenous obesity: BMI 30 kg/m-the patient overweighs 30 pounds Genitourinary history: 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 Asymptomatic now Musculoskeletal: Major Georgiou helicotrema mellitus, with elevated blood Coded Allergies: No Known Allergies (Verified , 06/06/17) Current medications Reported Medications Atorvastatin Calcium (ATORVASTATIN CALCIUM) 30 Mg Tablet, 40 MG PO QHS for SEE LABEL COMMENT., #30 TAB 06/06/17 Lisinopril (LISINOPRIL) 20 Mg Tablet, 20 MG PO DAILY for SEE LABEL COMMENT., #30 TAB 06/06/17 Metoprolol Succinate (METOPROLOL SUCCINATE) 25 Mg Tab.er.24h, 25 MG PO DAILY for SEE LABEL COMMENT., #30 TAB 06/06/17 PAST SURGICAL HISTORY Unremarkable Family History Not contributory Social History Patient currently lives by himself, 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 Constitutional: Denies easy tiredness, fever chills weight loss 2. Head & Face: Denies headache, nasal congestion 3: Eyes: Denies conjunctiva pains, blurred vision 4. ENT: nasal congestion, hearing deficit 5. Respiratory: cough, chest congestion, SOB. 6. Cardiovascular: angina, palpitation, SOB, edema 7. GI: Reports abdominal pain, rectal bleeding, tenderness. 8. : Denies dysuria, frequency. 9. Musculoskeletal: Denies generalized aches,back pains 10. Extremities: Denies edema, rash, open wounds 11. Neurological: Denies AMS, focal weakness or seizures 12. Skin: Denies rashes or open ulcerated wound 13. Endocrine: : Denies diabetes, hypothyroidism 14. Hem/Lymph: Denies anemia, leukemia, multiple myeloma 15. Allergy/Immunology: Denies allergic reactions 16. Psychiatry: Denies anxiety or depression disorder 17. Otherwise the Review of Systems is Negative as per History & Physical Interview: Yes Objective: Vitals Current Average/Min/Max Temp: 36.4 C (97.5 F) Temp Min: 36.4 C (97.5 F) Max: 37 C (98.6 F) BP: 146/74 BP Min: 134/80 Max: 146/74 HR: 54 Pulse Av.5 Min: 54 Max: 65 RR: 17 Resp Av.5 Min: 17 Max: 18 SpO2: 97 % on L/min room air SpO2 Min: 97 % Max: 97 % Weight: 79.8 kg (176 lb) Admit: 79.8 kg (176 lb) Physical exam Family History: Diabetes mellitus G8 MOTHER G8 FATHER Allergies: Coded Allergies: NO KNOWN ALLERGIES (Unverified , 02/11/25) Home Meds Reported Medications Calcium Carbonate (Calcium) 600 Mg Tab, 600 MG PO DAILY, TAB 02/11/25 Aspirin (Aspirin Low Dose) 81 Mg Chw, 81 MG PO DAILY, TAB.CHEW 02/11/25 Sitagliptin-Metformin Hcl (JANUMET XR) 1 Tab Tab, 1 TAB PO DAILY, TAB 02/11/25 Clopidogrel Bisulfate (Plavix) 75 Mg Tab, 75 MG PO DAILY, TAB 02/11/25 Lisinopril (Lisinopril) 20 Mg Tab, 10 MG PO DAILY, TAB 02/11/25 Metoprolol Succinate (Metoprolol Succinate Er) 25 Mg Tab, 25 MG PO DAILY, TAB 02/11/25 Atorvastatin Calcium (Lipitor) 10 Mg Tab, 10 MG PO DAILY, TAB 02/11/25 Pantoprazole Sodium Sesquihydr (Protonix) 40 Mg Tab, 40 MG PO DAILY, #30 TAB 02/11/25 Glimepiride (Glimepiride) 2 Mg Tab, 3 MG PO DAILY, TAB 02/11/25 Vital Signs Vital Signs Date Time Temp Pulse Resp B/P (MAP) Pulse Ox O2 Delivery O2 Flow Rate FiO2 02/14/25 17:47 97.2 86 17 133/81 (98) 98% 02/14/25 14:32 97 18 138/82 (100) 96% Nasal Cannula* 02/14/25 12:32 99 12 141/73 (95) 95 % Nasal cannula 2 28 02/14/25 11:47 102 12 159/84 (109 ) 96% Mask 5 50 Physical Exam General appearance: Well-developed, well-nourished late middle-aged white male Drowsy but awakenable to verbal commands Reports post surgical pains, in no respiratory distress Head: Normocephalic nontraumatic Eyes: EOMI, ANGIE, sclera nonicteric, conjunctive- pale ENT: No congestion, NSL bilateral symmetrical, oral mucosa dry Neck: Supple, carotid upstroke +2, trachea midline, surgical wound clean JVD-3 cm, No thyroid or lymph node , no use of sternomastoid muscle Chest: Bilateral symmetrical expansions, No costochondral tenderness Lungs: clear breath sounds all over except reduced at bases CVS: PMI-1 cm lateral to L MCL in fifth ICS , S1- S2 NSR no S3 GI: Abdomen soft, obese, bowel sounds normoactive, no mass/hernia No focal tenderness, No hepato splenomegaly, : No CVA tenderness, no bladder mass palpable, genitalia-NE SKIN: Turgor normal, color pink, no rash, no icterus, No varicosity, no ulcers or wounds EXTs: No edema, color pink, no rash, no ecchymosis, No open wounds distal pulses +2 capillary refill <2 seconds, JOINTS: full range of motion BACK: No apparent lumbosacral spinal muscle tenderness, LYMPH NODES: No cervical, axillary or inguinal lymph nodes Neuro: Drowsy but awakenable, oriented 4, coherent, all cognitives- intact No pronator drift, no focal motor deficit, Changes of DPN, DTR +2, gait NE PSYCH: Affect mildly depressed-denies suicidal ideation Labs/Diagnostic Data Labs Test 02/15/25 17:19 02/15/25 05:32 02/11/25 13:54 Range/Units POC Glucose 255 H 70-106 mg/dl White Blood Count 13.2 #H 4.4-10.8 10^3/uL Red Blood Count 4.52 4.5-5.90 10^6/uL Hemoglobin 13.2 L 13.5-17.5 g/dL Hematocrit 38.8 #L 41.0-53.0 % Mean Corpuscular Volume 85.9 80.0-100.0 fL Mean Corpuscular Hemoglobin 29.2 28.0-32.0 pg Mean Corpuscular Hemoglobin Concent 34.0 32.0-36.0 g/dL Red Cell Distribution Width 14.1 11.8-14.3 % Platelet Count 171 140-450 10^3/uL Mean Platelet Volume 10.2 6.9-10.8 fL Neutrophils (%) (Auto) 80.2 H 37.0-80.0 % Lymphocytes (%) (Auto) 11.5 10.0-50.0 % Monocytes (%) (Auto) 8.1 0.0-12.0 % Eosinophils (%) (Auto) 0.0 0.0-7.0 % Basophils (%) (Auto) 0.2 0.0-2.0 % Neutrophils # (Auto) 10.6 H 1.6-8.6 10 ^3/uL Lymphocytes # (Auto) 1.5 0.4-5.4 10 ^3/uL Monocytes # (Auto) 1.1 0-1.3 10 ^3/uL Eosinophils # (Auto) 0 0-0.8 10 ^3/uL Basophils # (Auto) 0 0-0.2 10 ^3/uL Nucleated Red Blood Cells 0.1 % Sodium Level 142 136-145 mmol/L Potassium Level 4.3 3.5-5.1 mmol/L Chloride Level 109 H 98-107 mmol/L Carbon Dioxide Level 24 20-31 mmol/L Anion Gap 9 5-15 Blood Urea Nitrogen 11 9-23 mg/dL Creatinine 0.91 0.700-1.30 mg/dL Glomerular Filtration Rate Calc 89 >90 mL/min BUN/Creatinine Ratio 12.1 10.0-20.0 Serum Glucose 228 #H 74-106 mg/dL Hemoglobin A1c 8.7 H <5.7 % A1C Calcium Level 9.0 8.7-10.4 mg/dL Total Bilirubin 0.5 0.2-1.0 mg/dL Aspartate Amino Transferase (AST) 17 13-40 U/L Alanine Aminotransferase (ALT) 24 7-40 U/L Alkaline Phosphatase 58 46-116 U/L Total Protein 6.5 5.7-8.2 g/dL Albumin 3.9 3.2-4.8 g/dL Prothrombin Time 10.3 9.3-11.8 sec Prothrombin Time INR 0.97 0.9-1.15 Activated Partial Thromboplast Time 25.9 24.5-34.5 SEC Urine Color Colorless Yellow Urine Clarity Clear Clear Urine pH 6.5 5.0-9.0 Urine Specific [place] 1.005 1.001-1.035 Urine Protein Negative Negative Urine Ketones Negative Negative Urine Blood Negative Negative /uL Urine Nitrite Negative Negative Urine Bilirubin Negative Negative Urine Urobilinogen Normal Negative mg/dL Urine Leukocyte Esterase Negative Negative /uL Urine RBC <1 0 - 3 /hpf Urine Microscopic WBC 0-3 /HPF Urine Squamous Epithelial Cells None seen <5 /hpf Urine Bacteria None seen None Seen /hpf Urine Glucose Normal Normal mg/dL CARINE MORALES MD Feb 15, 2025 18:36
--- NOTE | 2025-02-15 18:42 | DVHPN2 ---
Progress Note - Dictate Date Seen: Feb 15, 2025 vital signs Vital Sign Date Time Temp Pulse Resp B/P (MAP) Pulse Ox O2 Delivery O2 Flow Rate FiO2 02/15/25 17:41 150/81 02/15/25 16:58 98.9 90 18 96 98.9 02/15/25 07:30 Nasal Cannula* 2 28 Total Intake and Output 02/14/25 02/14/25 02/15/25 15:00 23:00 07:00 Intake Total 850 ml 760 ml Output Total 25 ml 20 ml 2750 ml Balance -25 ml 830 ml -1990 ml medications Current Medications Medications Dose Ordered Sig/Janice Route Start Time Stop Time Status Last Admin Dose Admin Ondansetron HCl 4 mg Q4HP PRN IV 02/14/25 09:15 Acetaminophen 650 mg Q6HP PRN PO 02/14/25 09:15 Acetaminophen/ Hydrocodone Bitart 1 tab Q6HP PRN PO 02/14/25 09:15 Morphine Sulfate 1 mg Q4HP PRN IV 02/14/25 09:15 Cyclobenzaprine HCl 10 mg TID PO 02/14/25 14:00 02/15/25 13:55 Docusate Sodium 100 mg BID PO 02/14/25 10:00 02/15/25 10:02 Cefazolin Sodium 50 ml @ 100 mls/hr Q8HR IV 02/14/25 14:00 02/16/25 06:29 02/15/25 13:55 Nitroglycerin 0.4 mg Q5MINP PRN SL 02/14/25 09:15 Morphine Sulfate 2 mg Q30M PRN IV 02/14/25 09:15 Diagnostic Test (Pha) 1 strip ACHS 02/14/25 17:00 02/15/25 17:39 Insulin Human Regular ACHS SC 02/14/25 14:15 02/15/25 17:39 Dextrose 50 ml UD PRN IV 02/14/25 14:15 Hydralazine HCl 10 mg Q6HP PRN IV 02/14/25 15:30 02/15/25 17:41 laboratory and microbiology Laboratory Tests 02/15/25 05:32 Test 02/15/25 05:32 Range/Units Serum Glucose 228 #H 74-106 mg/dL Problem List Uncontrolled Diabetes with hyperglycemia Etiologic causes a. Obesity and insulin resistance b. Noncompliance with diet and medications c stress from infection/surgery CARINE MORALES MD Feb 15, 2025 18:42
[2025-02-16] VITALS (7 sets, daily range): BP systolic 136–159; BP diastolic 83–90; PULSE 92–157; RESP 17–19; TEMP 97–98.8; O2SAT 95–98
--- NOTE | 2025-02-16 09:15 | DVHPN2 ---
Reviewed: Care Plan, H&P, Labs, Medications, Previous Orders, Radiology Changes from previous H/P or p: No Changes Objective Vitals Vital Signs Date Time Temp Pulse Resp B/P (MAP) Pulse Ox O2 Delivery O2 Flow Rate FiO2 02/16/25 09:02 98.2 109 19 136/90 (105) 98 98.2 02/16/25 07:30 Nasal Cannula* 2 28 Intake/Output Intake and Output 02/16/25 07:00 Intake Total 2000 ml Output Total 4175 ml Balance -2175 ml Intake Oral 800 ml IV Total 100 ml Tube Feeding 1100 ml Output Urine Total 4175 ml # Bowel Movements 1 Medications Current Medications Medications Dose Ordered Sig/Janice Route Start Time Stop Time Status Last Admin Dose Admin Ondansetron HCl 4 mg Q4HP PRN IV 02/14/25 09:15 Acetaminophen 650 mg Q6HP PRN PO 02/14/25 09:15 Acetaminophen/ Hydrocodone Bitart 1 tab Q6HP PRN PO 02/14/25 09:15 Morphine Sulfate 1 mg Q4HP PRN IV 02/14/25 09:15 Cyclobenzaprine HCl 10 mg TID PO 02/14/25 14:00 02/16/25 06:15 10 MG Docusate Sodium 100 mg BID PO 02/14/25 10:00 02/15/25 21:55 100 MG Nitroglycerin 0.4 mg Q5MINP PRN SL 02/14/25 09:15 Morphine Sulfate 2 mg Q30M PRN IV 02/14/25 09:15 Diagnostic Test (Pha) 1 strip ACHS 02/14/25 17:00 02/16/25 06:16 1 STRIP Insulin Human Regular ACHS SC 02/14/25 14:15 02/16/25 06:06 4 UNITS Dextrose 50 ml UD PRN IV 02/14/25 14:15 Hydralazine HCl 10 mg Q6HP PRN IV 02/14/25 15:30 02/16/25 06:36 10 MG Laboratory Results Laboratory Tests 02/15/25 05:32 Urinalysis Test 02/11/25 13:54 Urine Color Colorless (Yellow) Urine Clarity Clear (Clear) Urine pH 6.5 (5.0-9.0) Urine Specific [place] 1.005 (1.001-1.035) Urine Protein Negative (Negative) Urine Ketones Negative (Negative) Urine Blood Negative /uL (Negative) Urine Nitrite Negative (Negative) Urine Bilirubin Negative (Negative) Urine Urobilinogen Normal mg/dL (Negative) Urine Leukocyte Esterase Negative /uL (Negative) Urine RBC <1 /hpf (0 - 3) Urine Microscopic WBC /HPF (0-3) Urine Squamous Epithelial Cells None seen /hpf (<5) Urine Bacteria None seen /hpf (None Seen) Urine Glucose Normal mg/dL (Normal) Labs and/or images reviewed: Labs reviewed by me, Image(s) reviewed by me Assessment/Plan Assessment/Plan * covering for Dr. Rascon . * Status post cervical spine surgery for cervical stenosis, for which he will be placed on pain medications and received physical therapy. * Advanced care planning: The patient is a full code. Hypertension * Diabetes mellitus. The patient will be placed on sliding scale insulin. * Hyperlipidemia. * Obesity. * Coronary artery disease. Time spent 50 minutes Advanced care planning time 20 minutes Patient is full code Feels better and wants to go home. Discharged home on home health, patient does not want any pain meds Plan discussed with: Patient My Orders Orders - NIRAV GREEN MD Procedure Category Date Status Time Code Status CODE 02/15/25 Transmitted 13:33 Date of Service: Feb 16, 2025 Billing Provider: NIRAV GREEN MD Common Visit Codes: [id number] INP/OBS CARE(HIGH) NIRAV GREEN MD Feb 16, 2025 09:15
--- NOTE | 2025-02-16 09:19 | DVHDS2 ---
Discharge Summary Date of Admission Feb 14, 2025 at 09:08 Date of Discharge: Feb 16, 2025 Admitting Diagnosis Cervical neck pain with radiculopathy Wounds: C-spine surgery Labs/Diagnostic Data: Laboratory Results Test 02/16/25 06:01 02/15/25 05:32 02/11/25 13:54 POC Glucose 215 mg/dl (70-106) White Blood Count 13.2 10^3/uL (4.4-10.8) Red Blood Count 4.52 10^6/uL (4.5-5.90) Hemoglobin 13.2 g/dL (13.5-17.5) Hematocrit 38.8 % (41.0-53.0) Mean Corpuscular Volume 85.9 fL (80.0-100.0) Mean Corpuscular Hemoglobin 29.2 pg (28.0-32.0) Mean Corpuscular Hemoglobin Concent 34.0 g/dL (32.0-36.0) Red Cell Distribution Width 14.1 % (11.8-14.3) Platelet Count 171 10^3/uL (140-450) Mean Platelet Volume 10.2 fL (6.9-10.8) Neutrophils (%) (Auto) 80.2 % (37.0-80.0) Lymphocytes (%) (Auto) 11.5 % (10.0-50.0) Monocytes (%) (Auto) 8.1 % (0.0-12.0) Eosinophils (%) (Auto) 0.0 % (0.0-7.0) Basophils (%) (Auto) 0.2 % (0.0-2.0) Neutrophils # (Auto) 10.6 10 ^3/uL (1.6-8.6) Lymphocytes # (Auto) 1.5 10 ^3/uL (0.4-5.4) Monocytes # (Auto) 1.1 10 ^3/uL (0-1.3) Eosinophils # (Auto) 0 10 ^3/uL (0-0.8) Basophils # (Auto) 0 10 ^3/uL (0-0.2) Nucleated Red Blood Cells 0.1 % Sodium Level 142 mmol/L (136-145) Potassium Level 4.3 mmol/L (3.5-5.1) Chloride Level 109 mmol/L (98-107) Carbon Dioxide Level 24 mmol/L (20-31) Anion Gap 9 (5-15) Blood Urea Nitrogen 11 mg/dL (9-23) Creatinine 0.91 mg/dL (0.700-1.30) Glomerular Filtration Rate Calc 89 mL/min (>90) BUN/Creatinine Ratio 12.1 (10.0-20.0) Serum Glucose 228 mg/dL (74-106) Hemoglobin A1c 8.7 % A1C (<5.7) Calcium Level 9.0 mg/dL (8.7-10.4) Total Bilirubin 0.5 mg/dL (0.2-1.0) Aspartate Amino Transferase (AST) 17 U/L (13-40) Alanine Aminotransferase (ALT) 24 U/L (7-40) Alkaline Phosphatase 58 U/L (46-116) Total Protein 6.5 g/dL (5.7-8.2) Albumin 3.9 g/dL (3.2-4.8) Prothrombin Time 10.3 sec (9.3-11.8) Prothrombin Time INR 0.97 (0.9-1.15) Activated Partial Thromboplast Time 25.9 SEC (24.5-34.5) Urine Color Colorless (Yellow) Urine Clarity Clear (Clear) Urine pH 6.5 (5.0-9.0) Urine Specific [place] 1.005 (1.001-1.035) Urine Protein Negative (Negative) Urine Ketones Negative (Negative) Urine Blood Negative /uL (Negative) Urine Nitrite Negative (Negative) Urine Bilirubin Negative (Negative) Urine Urobilinogen Normal mg/dL (Negative) Urine Leukocyte Esterase Negative /uL (Negative) Urine RBC <1 /hpf (0 - 3) Urine Microscopic WBC /HPF (0-3) Urine Squamous Epithelial Cells None seen /hpf (<5) Urine Bacteria None seen /hpf (None Seen) Urine Glucose Normal mg/dL (Normal) Other Laboratory Tests 02/15/25 05:32 Brief Hx & Hospital Course: 74-year-old male with a history of hypertension diabetes coronary artery disease obesity with a chronic neck pain with cervical radiculopathy secondary to cervical spine stenosis underwent cervical spine surgery by Dr. Jacinto. Postop course uneventful. Patient being discharged home on home health she is going to live with the sister in [place] for some time before coming back to [facility]. Home health arrangements made. Patient does not want any pain medications he will follow up with the spine surgeon in two weeks Consults/Reason for consult Spine surgeon Dr. Jacinto Operations or Procedures Cervical spine surgery Condition at Discharge: Fair Final Diagnosis/Problems List * Status post cervical spine surgery for cervical stenosis, for which he will be placed on pain medications and received physical therapy. * Advanced care planning: The patient is a full code. Hypertension * Diabetes mellitus. The patient will be placed on sliding scale insulin. * Hyperlipidemia. * Obesity. * Coronary artery disease. Discharge Disposition: Home with Health Services Discharge Instruct/Medications Diet: Cardiac 2g Na,low cholest Activity: Light activity Follow Up/Referral: Resume all your previous home medications Follow up with the primary Dr Follow up with the spine surgeon Dr. Jacinto in two weeks Medications: None Patient Does not want any pain meds Scheduled Aspirin (Aspirin Low Dose), 81 MG PO DAILY, (Reported) Atorvastatin Calcium (Lipitor), 10 MG PO DAILY, (Reported) Calcium Carbonate (Calcium), 600 MG PO DAILY, (Reported) Clopidogrel Bisulfate (Plavix), 75 MG PO DAILY, (Reported) Glimepiride (Glimepiride), 3 MG PO DAILY, (Reported) Lisinopril (Lisinopril), 10 MG PO DAILY, (Reported) Metoprolol Succinate (Metoprolol Succinate Er), 25 MG PO DAILY, (Reported) Pantoprazole Sodium Sesquihydr (Protonix), 40 MG PO DAILY, (Reported) Sitagliptin-Metformin Hcl (Janumet Xr), 1 TAB PO DAILY, (Reported) 36 (Time taken for discharge summary 36 minutes) Discharge Statement: "Patient was advised to return to the ER or call 911 if any headaches, dizziness, shortness of breath, chest pain, abdominal pain, bleeding, fevers, or worsening of medical condition. Patient was counseled about treatment plan, medications, possible side effects, patientverbalized understanding. All questions were answered to the best of my ability. This discharge took greater then 30 minutes in planning, reviewing documentation, counseling the patient, and discussing with other team members." ASSESSMENT ASSESSMENT Hospital Course Improved Assessment * Status post cervical spine surgery for cervical stenosis, for which he will be placed on pain medications and received physical therapy. * Advanced care planning: The patient is a full code. Hypertension * Diabetes mellitus. The patient will be placed on sliding scale insulin. * Hyperlipidemia. * Obesity. * Coronary artery disease. Date of Service: Feb 16, 2025 Billing Provider: NIRAV GREEN MD Common Visit Codes: 02940-CUH/OBS DISCH DAY >30min NIRAV GREEN MD Feb 16, 2025 09:19
--- NOTE | 2025-02-16 11:51 | DVHPN2 ---
Progress Note - Surgical Date Seen: Feb 16, 2025 Post op day Post op day: 2 Subjective Patient reports: No new complaints, Feels better Review of Systems: NEURO:Abnormal (Initial complaints Patient preop complaints of right shoulder pain and right arm weakness has been going on for about 6-7 months he has had physical therapy in the past which did help however when physical therapy ends the pain and discomfort and weakness returns.) Objective Vital signs Vital Sign Date Time Temp Pulse Resp B/P (MAP) Pulse Ox O2 Delivery O2 Flow Rate FiO2 02/16/25 09:02 98.2 109 19 136/90 (105) 98 98.2 02/16/25 07:30 Nasal Cannula* 2 28 Total Intake and Output 02/15/25 02/15/25 02/16/25 15:00 23:00 07:00 Intake Total 50 ml 850 ml 1100 ml Output Total 1775 ml 2400 ml Balance 50 ml -925 ml -1300 ml Medications Current Medications Medications Dose Ordered Sig/Janice Route Start Time Stop Time Status Last Admin Dose Admin Ondansetron HCl 4 mg Q4HP PRN IV 02/14/25 09:15 Acetaminophen 650 mg Q6HP PRN PO 02/14/25 09:15 Acetaminophen/ Hydrocodone Bitart 1 tab Q6HP PRN PO 02/14/25 09:15 Morphine Sulfate 1 mg Q4HP PRN IV 02/14/25 09:15 Cyclobenzaprine HCl 10 mg TID PO 02/14/25 14:00 02/16/25 06:15 10 MG Docusate Sodium 100 mg BID PO 02/14/25 10:00 02/16/25 09:56 100 MG Nitroglycerin 0.4 mg Q5MINP PRN SL 02/14/25 09:15 Morphine Sulfate 2 mg Q30M PRN IV 02/14/25 09:15 Diagnostic Test (Pha) 1 strip ACHS 02/14/25 17:00 02/16/25 10:03 1 STRIP Insulin Human Regular ACHS SC 02/14/25 14:15 02/16/25 10:51 6 UNITS Dextrose 50 ml UD PRN IV 02/14/25 14:15 Hydralazine HCl 10 mg Q6HP PRN IV 02/14/25 15:30 02/16/25 06:36 10 MG Laboratory Laboratory Tests 02/15/25 05:32 Test 02/15/25 05:32 Range/Units Serum Glucose 228 #H 74-106 mg/dL Examination: GENERAL:Normal, HEENT:Normal, NECK:Normal (site is well aproximated with heather, drain was inadvertently pulled out last night during sleep. Minimal drainage at this time no swelling no redness no bleeding minimal pain with palpation), LUNGS:Normal, CVS:Normal, ABDOMEN:Normal, MSK:Normal (Patient reports he only has discomfort to his right shoulder when he looks down and touch his chin to his chest other than that the pain to his shoulder has resolved), SKIN:Normal (Surgical site is well intact minimal drainage from drain site), NEURO:Normal (Greatly improved from preop symptoms), :Abnormal (Ballard catheter remains in place still pending urology consult) Problem List/Assessment/Plan Problems: (1) Muscle spasms of neck (2) Acute post-operative pain Assessment and Plan Initial complaints Patient preop complaints of right shoulder pain and right arm weakness has been going on for about 6-7 months he has had physical therapy in the past which did help however when physical therapy ends the pain and discomfort and weakness returns. patient doing well, ambulating, preop symptoms resolving nicely Drain inadvertently discontinued during sleep, anchor suture removed today Patient is up sitting in chair, verbalizes feeling good stable on his feet ambulating independently Ballard catheter remains in place urine is clear and yellow no blood reported to be at the meatus, still pending urology consult Plan to discharge today Disposition: -home -Discharge RX: Patient has picked up all medications after his preop visit -Follow up appointment: with Dr Jacinto on scheduled date and time of your appointment, [id number] [facility] [address] [place] [id number] -Pain: - IV pain meds post op day 1, with PO supplementation, goal is to progress weaning off IV medications and control pain with PO only. morphine 1mg q 4 hours (PAIN 7-10) - P.O. analgesics:Tylenol 650MG (PAIN 1-3) Mellette 10/325 mg (PAIN 4-6) - Muscle relaxers scheduled administration. This is a beneficial medications for the incisional pain as it is mostly related to muscle spasms. Flexeril 10 mg TID - Cepacol throat lozenges as needed for sore throat -Antibiotics Operative recommendations: -Postoperative dose:-Post operative antibiotics cefazolin 1 g IV piggyback every 8 hours x 48 hours total of 6 doses -DVT PPX: -Hold all chemical DVT/ blood thinners for 14 days postoperatively -use mechanical DVT PPX such as SCD's, ambulation -Activity: -PT evaluation and patients progression -Sit at side of bed for meals -Goal: Ambulate independently and safely (may use assistive devices if needed) -Medical Therapy goals: -Afebrile- Patient may develop a expected post operative fever by day 2-3, this may not be accompanied with a elevation in WBC. if fever develops: Acetaminophen for fever. Albuterol nebulizer Tx every 12 hours for 24 hours to facilitate adequate lung expansion and prevent development of atelectasis. -Euglycemic: bloods sugars under 130mmol/L for optimal healing -Normotensive: Avoid events of hypertension. This helps to keep post operative healing intact and avoids destabilization of beneficial hemostatic coagulation. -Ballard: -intact, clear yellow urine no blood at the meatus -Dressings -Anterior cervical patients: Initial surgical dressing may be reinforced if needed. If there is excessive bleeding, leaking notify provider -Bowel management: -Colace 100mg bid -Diet: -Clear liquid diet and advance as patient tolerates within dietary limitations ( example: diabetic, Cardiac)- patient is tolerating diet -Incentive Spirometer: -10 x hour while awake, RN please educate and observe repeat demonstration, have IS at bedside POD #1 -X-rays: - none indicated at this time -Consults: -Physical Therapy evaluation, treatment recommendations, and discharge recommendations Call with questions Rafael Garcia [facility]- Orthopaedic Spine Surgery nurse practitioner For Dr Nehemias Jacinto Patient was examined, chart reviewed, labs evaluated, and diagnostic studies and findings analyzed. Case was discussed with Dr. Francis Jacinto who formulated the plan of care. This medical document was created using an electronic medical record system with [employer] system. Although this document has been carefully reviewed, there might still be some phonetic and typographical errors. These areas are purely typographical due to imperfections of the software programs, and do not reflect any compromise in the patient's medical care. Plan discussed with Plan discussed with: Patient, Other (RN) Visit Coding Surgery Date of Service if different f: Feb 16, 2025 Billing Provider: KAYCEE GARCAI NP Surgery Visit Codes: NOT BILLABLE KAYCEE GARCIA NP Feb 16, 2025 11:51
--- NOTE | 2025-02-16 12:29 | PRN ---
Misceleneous Note Note Note Contacted Erick broderick [facility] urology presented case made her aware that we are waiting for a consult that was placed two days ago with Dr. Perdomo related to blood being present after Ballard placement in the OR. Patient no longer has any blood present at the meatus urine remains clear. Message received that the patient is cleared from a urology standpoint it is okay to remove the Ballard catheter if the patient is ambulatory. Nursing remove the Ballard in a gentle fashion and Call with questions Rafael Maradiaga [facility] Orthopaedic Spine Surgery nurse practitioner For Dr Nehemias Jacinto Office Patient was examined, chart reviewed, labs evaluated, and diagnostic studies and findings analyzed. Case was discussed with Dr. Francis Jacinto who formulated the plan of care. This medical document was created using an electronic medical record system with [employer] dictation system. Although this document has been carefully reviewed, there might still be some phonetic and typographical errors. These areas are purely typographical due to imperfections of the software programs, and do not reflect any compromise in the patient's medical care. KAYCEE MARADIAGA NP Feb 16, 2025 12:29
--- NOTE | 2025-02-16 21:00 | DVHPN2 ---
Progress Note - Dictate Date Seen: Feb 16, 2025 Subjective Patient is being discharged Full discharge education is vital signs Vital Sign Date Time Temp Pulse Resp B/P (MAP) Pulse Ox O2 Delivery O2 Flow Rate FiO2 02/16/25 14:32 97.0 98 17 96 02/16/25 14:12 141/85 (103) 02/16/25 07:30 Nasal Cannula* 2 28 Total Intake and Output 02/15/25 02/15/25 02/16/25 15:00 23:00 07:00 Intake Total 50 ml 850 ml 1100 ml Output Total 1775 ml 2400 ml Balance 50 ml -925 ml -1300 ml laboratory and microbiology Laboratory Tests 02/15/25 05:32 Test 02/15/25 05:32 Range/Units Serum Glucose 228 #H 74-106 mg/dL Problem List Uncontrolled Diabetes with hyperglycemia Etiologic causes a. Obesity and insulin resistance b. Noncompliance with diet and medications c stress from infection/surgery CARINE MORALES MD Feb 16, 2025 21:00
== END 2025-02-16 15:00 | disposition home or self-care (01) | DRG 472 ==
LOC: SUR 06:10 → OVERFLOW 09:08 → TELE-EAST 15:03
PROVIDERS: ADMIT Family Medicine; ATTEND Family Medicine
PROC: 0RG20A0 Fusion of 2 or more Cervical Vertebral Joints with Interbody Fusion Device, Anterior Approach, Anterior Column, Open Approach (ICD-10-PCS; 2025-02-14)
PROC: 01N10ZZ Release Cervical Nerve, Open Approach (ICD-10-PCS; 2025-02-14)
PROC: 00NW0ZZ Release Cervical Spinal Cord, Open Approach (ICD-10-PCS; 2025-02-14)
PROC: 0RB30ZZ Excision of Cervical Vertebral Disc, Open Approach (ICD-10-PCS; principal; 2025-02-14 08:22)
DX: M48.02 Spinal stenosis, cervical region (principal); M50.01 Cervical disc disorder with myelopathy, high cervical region; E11.9 Type 2 diabetes mellitus without complications; E66.9 Obesity, unspecified; I10 Essential (primary) hypertension; I25.10 Atherosclerotic heart disease of native coronary artery without angina pectoris; E78.00 Pure hypercholesterolemia, unspecified; G89.18 Other acute postprocedural pain; M62.838 Other muscle spasm; M50.11 Cervical disc disorder with radiculopathy, high cervical region; Z68.32 Body mass index [BMI] 32.0-32.9, adult; Z83.3 Family history of diabetes mellitus; I25.2 Old myocardial infarction; Z91.119 Patient's noncompliance with dietary regimen due to unspecified reason
CPT/HCPCS: 36415; 72040; 76000; 80053; 81001; 82962; 83036; 85025; 85610; 85730; 86850; 86900; 86901; 97110; 97116; 97163; 97530; G0378; J1100; J1815; J1956; J2250; J2405; J2704; J7042